=== PATIENT | male | born 1960 | race Caucasian/White ===

== ENCOUNTER 2023-11-11 20:08 | Emergency (ER) | payer OTHER, SELFPAY ==
[2023-11-11] VITALS (52 sets, daily range): BP systolic 158–215; BP diastolic 62–92; PULSE 74–99; RESP 9–23; TEMP 36.3; O2SAT 94–97
--- NOTE | 2023-11-11 20:15 | RT.EKG_ITS ---
APPROVED REPORT Exam: Resting ECG Reason for Exam: hypertension Patient Location: E HR:81 bpm ECG Measurements Heart Rate 81 AXIS IA 162 P 37 QRSd 100 QRS 24 QT 365 T 67 QTc 423 Conclusion Sinus rhythm\ normal axis no acute ST change
--- NOTE | 2023-11-11 20:33 | W.ED.GENAD ---
HPI General Stated Complaint: GenMedical AMARI: 3 Date/Time Provider Initiated Documentation: 11/11/23 20:28. Limitations to Documentation: no limitations. Information obtained by: patient and police. HPI Narrative: 63-year-old gentleman with past medical history of hypertension, recent ablation, CVA with left-sided deficits presents for evaluation of hypertension. Patient reports that he has not been feeling well all day. He had some chest pain earlier. No chest pain at this time. Reports that he saw some spots and felt very lightheaded, but this also resolved. He reports that he was given an extra dose of lisinopril today. He is otherwise compliant with his medications. he say that his complex PTSD Related Data Home Medications Medication Instructions Recorded Confirmed cyclobenzaprine 10 mg tablet 10 mg PO HS 11/11/23 11/11/23 diclofenac sodium 1 % topical gel 2 g topical BID 11/11/23 11/11/23 diltiazem HCl 180 mg 180 mg PO DAILY 11/11/23 11/11/23 capsule,extended release 24 hr glipizide 2.5 mg tablet 2.5 mg PO DAILY 11/11/23 11/11/23 hydrocortisone 2.5 % topical cream 1 applic topical BID PRN 11/11/23 11/11/23 ketoconazole 2 % shampoo 1 applic topical .COMPLEX PRN 11/11/23 11/11/23 lisinopril 5 mg tablet 5 mg PO DAILY 11/11/23 11/11/23 metoprolol succinate 50 mg 50 mg PO BID 11/11/23 11/11/23 tablet,extended release 24 hr pantoprazole 40 mg tablet,delayed 40 mg PO DAILY 11/11/23 11/11/23 release trazodone 100 mg tablet 300 mg PO DAILY 11/11/23 11/11/23 Allergies Allergy/AdvReac Type Severity Reaction Status Date / Time acetaminophen [From Percocet] Allergy Hives Verified 11/11/23 20:46 oxycodone [From Percocet] Allergy Hives Verified 11/11/23 20:46 peanut Allergy Hives Verified 11/11/23 20:46 penicillin V Allergy Verified 11/11/23 20:46 Kfrknko-XIE-ObR Reductase AdvReac Malaise Verified 11/11/23 20:46 Inhibitor metformin AdvReac Headache Uncoded 11/11/23 20:46 PFSH Social History Smoking/Tobacco Use Status: Former Tobacco Use Smoking risk assessment performed?: Yes Alcohol Intake: never Drug use: Daily Substance use type: marijuana Exam Narrative Exam Narrative: Review of Systems: All systems reviewed & are unremarkable except as noted in HPI and below Well-developed, no acute distress NACT PERRL, normal conjunctiva RRR + Hypertensive Unlabored respiratory effort Nondistended abdomen Extremities w/o deformity, no cyanosis, no edema No rashes or lesions. + Left-sided facial droop Appropriate mood and affect Course Vital Signs Vital signs: Vital Signs Temperature 36.3 C L 11/11/23 20:27 Pulse 83 11/11/23 20:27 Respiratory Rate 16 11/11/23 20:27 Blood Pressure 215/82 H 11/11/23 20:27 Pulse Oximetry 96 11/11/23 20:27 Temperature 36.3 C L 11/11/23 20:27 Temperature Source Oral 11/11/23 20:27 Pulse 83 11/11/23 20:27 Respiratory Rate 16 11/11/23 20:27 Blood Pressure 215/82 H 11/11/23 20:27 Blood Pressure Position Supine 11/11/23 20:27 Pulse Oximetry 96 11/11/23 20:27 Oxygen Delivery Method Room Air 11/11/23 20:27 Oxygen Flow Rate 0 11/11/23 20:27 Comment pt reports pain in side, chronic pain syndrome 11/11/23 20:27 Medical Decision Making Emergent evaluation of elevated blood pressure. Symptoms of visual change and chest pain occurred prior, but not having them currently. Patient has significant cardiac history and is on diltiazem, metoprolol and was given doses of lisinopril today to help control blood pressure. His EKG does not show acute ischemic changes. Will attempt blood pressure control, check lab work for endorgan damage. Cardiac monitoring and reassess 1999: Labwork reviewed. No leukocytosis or anemia. Creatinine 1.4. No priors for comparison. Troponin and BNP not elevated. plan for repeat trop. continued monitoring. continued blood pressure control. patient reports symptoms resolved. 2300: final dispo pending repeat trop. continues to be asymptomatic. if trop negative can be discharged back to nursing home for further medical management. Medical Records Medical records reviewed: Yes I reviewed the patient's medical records. Lab Data Lab results reviewed: Yes I reviewed the patient's lab results. ECG Data Attestation: I personally reviewed and interpreted this ECG (s) as follows: Prior ECG tracings: not available for review Interpretation: Sinus 81, normal axis, no acute ST segment changes Quality:SDOH Health Related Social Needs: No Data to Display Sign Out Sign Out Data: Sign Out Comment: 63y M PMH of CVA, a fib s/p ablation, HTN presents with elevated BP. had CP earlier in the day. Pendinnd trop @ 2330 if negative > DC home has gotten BP meds. labs look good. incarcerated, can have BP meds adjusted by nursing home. Last updated by Peace Sheth MD at 11/11/23 22:42 Discharge Plan Discharge Details Chief Complaint: GenMedical Primary Care Provider: Unknown,Unknown ED Provider: Peace Sheth Home Meds and New Rx's Prescriptions: No Action lisinopril 5 mg tablet 5 mg PO DAILY trazodone 100 mg tablet 300 mg PO DAILY diltiazem HCl 180 mg capsule,extended release 24hr 180 mg PO DAILY metoprolol succinate 50 mg tablet extended release 24 hr 50 mg PO BID pantoprazole 40 mg tablet,delayed release (DR/EC) 40 mg PO DAILY ketoconazole 2 % shampoo 1 applic topical .COMPLEX PRN Rx Instructions: 1 applic topically every tuesday and tuesday PRN; hydrocortisone 2.5 % cream 1 applic topical BID PRN glipizide 2.5 mg tablet 2.5 mg PO DAILY diclofenac sodium 1 % gel 2 g topical BID Rx Instructions: apply to BUE and BLE 2 times per day cyclobenzaprine 10 mg tablet 10 mg PO HS
[2023-11-11] MEDS: hydrALAZINE 20 MG/ML VIAL 10 MG IVP ×2 (20:47→22:10)
[2023-11-11 20:48] LABS: Abs Immature Grans 0.03 10^3/uL (0.0-0.06); Absolute Basophil Count 0.08 10^3/uL (0.0-0.2); Absolute Eosinophil Count 0.19 10^3/uL (0.0-0.7); Absolute Lymphocyte Count 2.45 10^3/uL (1.2-3.4); Absolute Neutrophil Count 5.37 10^3/uL (1.2-6.7); Basophils % 0.9; Eosinophils % 2.1; HCT 47.3 % (40.0-50.0); HGB 16.9 g/dL (13.5-17.5); Immature Grans % 0.3; Lymphocytes % 27.2; MCH 29.9 pg (27.0-33.0); MCHC 35.7 % (32.0-36.0); MCV 84 fL (80-95); MPV 9.4 fL (8.0-11.0); Neutrophils % 59.5; Platelet Count 257 10^3/uL (130-400); RBC 5.66 10^6/uL (4.36-5.78); RDW 12.5 % (11.8-14.1); RDW-SD 37.9 fL; WBC 9.02 10^3/uL (4.4-10.8)
[2023-11-11 21:12] LABS: ALT 40 U/L (16-63); AST 21 U/L (15-37); Albumin 4.1 g/dL (3.4-5.0); Alkaline Phosphatase 54 U/L (46-116); Anion Gap 11.9 mmol/L (3-11); BUN 18 mg/dL (7-18); Bilirubin, Total 0.4 mg/dL (0.2-1.0); CO2 24.1 mmol/L (21.0-32.0); CREATININE 1.4 mg/dL (0.70-1.30); Calcium 9.2 mg/dL (8.5-10.1); Chloride 99 mmol/L (98-107); Estimated GFR 57.18 (mL/min/1.73m2); Glucose 238 mg/dL (74-106); NT-proBNP 59 pg/mL (<300); Potassium 3.5 mmol/L (3.5-5.1); Sodium 135 mmol/L (136-145); TSH 2.76 uIU/mL (0.36-3.74); Total Protein 7.9 g/dL (6.4-8.2); Troponin I < 50 ng/L (<or=60)
[2023-11-11] MEDS: Metoprolol 25 MG TAB PO (21:29)
[2023-11-11 23:48] LABS: Troponin I < 50 ng/L (<or=60)
[2023-11-12] VITALS: PULSE 81; RESP 21; O2SAT 95
[2023-11-12 00:01] VITALS: BP 147/74; PULSE 78; PULSE 83; RESP 20; O2SAT 96
--- NOTE | 2023-11-12 00:04 | ED.PROG_ITS ---
Date of service: 11/12/23 Time of Service: 00:22 Medical Decision Making Repeat troponin has returned as normal. The patient's blood pressure has normalized with treatment here in the emergency room and can have additional medical therapy tomorrow during the day. Plan is for discharge back to the intermediate. Quality:[facility] Health Related Social Needs: No Data to Display Sign Out Sign Out Data: Sign Out Comment: 63y M PMH of CVA, a fib s/p ablation, HTN presents with elevated BP. had CP earlier in the day. Pendinnd trop @ 2330 if negative > DC home has gotten BP meds. labs look good. incarcerated, can have BP meds adjusted by intermediate. Last updated by Peace Sheth MD at 11/11/23 22:42 Discharge Plan Disposition [facility] Dis[facility] Discharge Details Clinical Impression: Chest pain, Hypertension Primary Care Provider: Unknown,Unknown ED Provider: Alexi Lux Meds and New Rx's Prescriptions: No Action lisinopril 5 mg tablet 5 mg PO DAILY trazodone 100 mg tablet 300 mg PO DAILY diltiazem HCl 180 mg capsule,extended release 24hr 180 mg PO DAILY metoprolol succinate 50 mg tablet extended release 24 hr 50 mg PO BID pantoprazole 40 mg tablet,delayed release (DR/EC) 40 mg PO DAILY ketoconazole 2 % shampoo 1 applic topical .COMPLEX PRN Rx Instructions: 1 applic topically every tuesday and tuesday PRN; hydrocortisone 2.5 % cream 1 applic topical BID PRN glipizide 2.5 mg tablet 2.5 mg PO DAILY diclofenac sodium 1 % gel 2 g topical BID Rx Instructions: apply to BUE and BLE 2 times per day cyclobenzaprine 10 mg tablet 10 mg PO HS Discharge Instructions Instructions: Hypertension (ED) Additional Instructions: Work with your normal prescriber at the correctional facility to improve your blood pressure with additional oral blood pressure medications as needed. You can always return to the ER for any new concerns or sudden changes in your health which you feel require emergency medical attention. Discharge Data Discharge Physician: Alexi Lux
--- NOTE | 2023-11-12 00:29 | NUR.NOTE ---
report given to [facility] staff member Mayra Nursing Note:
== END 2023-11-12 00:12 ==
PROVIDERS: Emergency Medicine; Emergency Provider Emergency Medicine Emergency Medical Services
DX: R07.9 Chest pain, unspecified (principal); I10 Essential (primary) hypertension; I48.91 Unspecified atrial fibrillation; I69.398 Other sequelae of cerebral infarction; Z87.891 Personal history of nicotine dependence
CPT/HCPCS: 00123; 80053; 93005; 96374; 96376; 99284; 83735; 83880; 84443; 84484; 85025; 93010; J0360